=== PATIENT | female | born 1985 | race Two or more races ===

== ENCOUNTER 2018-05-21 09:46 | Emergency (ER) | payer MEDICAID ==
[~2018-05-21] VITALS: Ht 157.5 cm; Wt 53.5 kg
[2018-05-21 10:07] VITALS: BP 125/75
[2018-05-21] MEDS ORDERED: IBUPROFEN 400 MG TABLET PO ONE (11:30)
[2018-05-21] MEDS ORDERED: TDAP [DIPH/PERTUSSIS/TET] 0.5 ML VIAL IM ONE ×2 (11:30→11:47)
[2018-05-21] MEDS ORDERED: IBUPROFEN 400 MG TABLET ONE (11:47)
== END 2018-05-21 12:18 | disposition home or self-care (01) ==
LOC: ER 09:48
DX: S70.312A Abrasion, left thigh, initial encounter (principal); L03.116 Cellulitis of left lower limb; W26.8XXA Contact with other sharp object(s), not elsewhere classified, initial encounter; Y93.89 Activity, other specified; Y92.89 Other specified places as the place of occurrence of the external cause; Y99.8 Other external cause status
CPT/HCPCS: 90471; 90715; 99283; A4606; J7030; Z7610